=== PATIENT | female | born 1955 | race Caucasian/White ===

== ENCOUNTER 2016-12-08 12:28 | Inpatient (IN) ==
[2016-12-03 14:52] LABS: Appearance,Urine CLEAR; Bacteria,Urine 0 /hpf (0); Bilirubin,Urine NEG (NEG); Color,Urine YELLOW; Glucose,Urine (UA) NEGATIVE (NEG); Leukocyte Esterase,Urine 75 /uL (NEG); Mucus,Urine FEW /hpf (0); Nitrate,Urine NEG (NEG); Protein,Urine NEG (NEG); Specific Gravity,Urine 1.016 (1.000-1.035); Urine Blood NEG mg/dL (<0.03); Urine Hyaline Cast 3 /lpf (0-2); Urine RBC 1 /hpf (0-1); Urine Squamous Epithelial Cell 0 /hpf (0-4); Urine Transitional Epi Cells 1 /hpf (0-2); Urine WBC 8 /hpf (0-4); Urobilinogen,Urine NEG (NEG)
[2016-12-03 15:33] LABS: Basophils # (Auto) 0 K/mcL (0.0-0.3); Basophils % (Auto) 0.1 % (0.0-2.0); Eosinophils # (Auto) 0.2 K/mcL (0.0-0.7); Eosinophils % (Auto) 1.7 % (0.0-7.0); Granulocytes % (Auto) 66.7 % (38.0-78.0); Lymphocytes # (Auto) 2.7 K/mcL (1.5-4.8); Lymphocytes % (Auto) 26.1 % (15.5-49.0); Mean Cell Volume 95.4 fL (80.0-100.0); Mean Corpuscular HGB Conc 32.4 g/dL (31.0-36.0); Mean Corpuscular Hemoglobin 30.9 pg (26.0-34.0); Monocytes # (Auto) 0.6 K/mcL (0.1-0.9); Monocytes % (Auto) 5.4 % (1.0-9.0); Platelet Count 278 K/mcL (140-440); RBC 4.33 M/mcL (4.00-5.20); Red Cell Distribution Width 14.7 % (11.5-14.5)
[2016-12-03 15:58] LABS: Blood Urea Nitrogen 21 mg/dl (6-20)
[~2016-12-08 12:28] MED LIST: CELECOXIB 200 MG CAPSULE PO SCH; KETOROLAC 30 MG, ROPIVACAINE HCL/PF 49.5 ML, EPINEPHrine 0.5 MG, 0.9 % SODIUM CHLORIDE ... IJ SCH; PREGABALIN 150 MG CAPSULE PO SCH; ceFAZolin 1 GM VIAL IV SCH; oxyCODONE 10 MG TAB.ER.12H PO SCH
[2016-12-08 13:50] LABS: Appearance,Urine CLEAR; Bacteria,Urine 0 /hpf (0); Bilirubin,Urine NEG (NEG); Color,Urine YELLOW; Glucose,Urine (UA) NEGATIVE (NEG); Leukocyte Esterase,Urine NEG /uL (NEG); Mucus,Urine FEW /hpf (0); Nitrate,Urine NEG (NEG); Protein,Urine NEG (NEG); Specific Gravity,Urine 1.016 (1.000-1.035); Urine Blood NEG mg/dL (<0.03); Urine Hyaline Cast 1 /lpf (0-2); Urine RBC 1 /hpf (0-1); Urine Squamous Epithelial Cell 0 /hpf (0-4); Urine WBC < 1 /hpf (0-4); Urobilinogen,Urine NEG (NEG)
[2016-12-08] MEDS ORDERED: ROPIVACAINE HCL/PF 30 ML VIAL IJ ONE (15:30)
[2016-12-08] MEDS ORDERED: TRANEXAMIC ACID 1,000 MG/10 ML VIAL IV ONE (15:30)
[2016-12-08] MEDS ORDERED: PHENYLEPHRINE 10 MG/ML VIAL IV ONE (15:30)
[2016-12-08] MEDS ORDERED: GLYCOPYRROLATE 0.2 MG/ML VIAL IV ONE (15:30)
[2016-12-08] MEDS ORDERED: DEXAMETHASONE 10 MG/ML VIAL IV ONE (15:30)
[2016-12-08] MEDS ORDERED: ePHEDrine 50 MG/ML AMPUL IV ONE (15:30)
[2016-12-08] MEDS ORDERED: LIDOCAINE HCL/PF 100 MG/5 ML SYRINGE IV ONE (15:30)
[2016-12-08] MEDS ORDERED: ONDANSETRON 4 MG/2 ML VIAL IV ONE (15:30)
[2016-12-08] MEDS ORDERED: MIDAZOLAM 2 MG/2 ML VIAL IV ONE (15:30)
[2016-12-08] MEDS ORDERED: PROPOFOL 200 MG/20 ML VIAL IV ONE (15:30)
[2016-12-08] MEDS ORDERED: GENTAMICIN SULFATE 800 MG/20 ML VIAL IR ONE (16:02)
[2016-12-08] MEDS ORDERED: diphenhydrAMINE 50 MG/ML VIAL IV PRN (16:37)
[2016-12-08] MEDS ORDERED: MEPERIDINE 25 MG/ML SYRINGE IV PRN (16:37)
[2016-12-08] MEDS ORDERED: BENZOCAINE/MENTHOL 1 LOZENGE PO PRN (16:37)
[2016-12-08] MEDS ORDERED: FLUMAZENIL 0.1 MG/ML ML IV PRN (16:37)
[2016-12-08] MEDS ORDERED: METOCLOPRAMIDE 10 MG/2 ML VIAL IV PRN (16:37)
[2016-12-08] MEDS ORDERED: MEPERIDINE 50 MG/ML SYRINGE IM ONE (16:37)
[2016-12-08] MEDS ORDERED: PROMETHAZINE 25 MG/ML VIAL IM ONE (16:37)
[2016-12-08] MEDS ORDERED: NALOXONE HCL 0.4 MG/ML VIAL IV PRN (16:37)
[2016-12-08] MEDS ORDERED: PROMETHAZINE 25 MG/ML VIAL IV PRN ×2 (16:37→17:22)
[2016-12-08] MEDS ORDERED: ePHEDrine 50 MG/ML AMPUL IV PRN (16:37)
[2016-12-08] MEDS ORDERED: ONDANSETRON 4 MG/2 ML VIAL IV PRN ×2 (16:37→17:22)
[2016-12-08] MEDS ORDERED: HYDROmorphone 2 MG/ML SYRINGE IV PRN ×2 (16:37→18:30)
[2016-12-08] MEDS ORDERED: LACTATED RINGERS 250 ML IV PRN (16:37)
[2016-12-08] MEDS ORDERED: METHOCARBAMOL 1,000 MG/10 ML VIAL IV PRN (16:37)
[2016-12-08] MEDS ORDERED: IPRATROPIUM/ALBUTEROL 3 ML AMPUL.NEB NEB PRN (16:37)
[2016-12-08] MEDS ORDERED: fentaNYL 100 MCG/2 ML VIAL IV PRN (16:37)
[2016-12-08] MEDS ORDERED: LACTATED RINGERS 1,000 ML IV SCH (16:45)
[2016-12-08] MEDS ORDERED: MELOXICAM 7.5 MG TABLET PO PRN (17:21)
--- NOTE | 2016-12-08 17:21 | Brief Operative Note ---
Date of procedure: 12/08/16 Pre-op diagnosis: right knee oa Post-op diagnosis: same Procedure: right total knee arthroplasty Grafts/Implants: Yes Anesthesia: spinal Complications: none Surgeon: Leonardo Brandon Wood Scrap Handler: Charbel Morin Estimated blood loss (cc): 150 Tourniquet Time (Minutes): 58 Specimens Removed/Pathology: none sent Condition: stable Disposition: PACU
[2016-12-08] MEDS ORDERED: POLYETHYLENE GLYCOL 3350 17 GM PACKET PO PRN (17:22)
[2016-12-08] MEDS ORDERED: TRANEXAMIC ACID 1,000 MG/10 ML VIAL IV SCH (17:22)
[2016-12-08] MEDS ORDERED: BISACODYL 10 MG SUPP.RECT PR PRN (17:22)
[2016-12-08] MEDS ORDERED: ONDANSETRON ODT 4 MG TABLET SL PRN (17:22)
[2016-12-08] MEDS ORDERED: FLEETS ADULT ENEMA PR PRN (17:22)
[2016-12-08] MEDS ORDERED: MAGNESIUM HYDROXIDE 30 ML ORAL.SUSP PO PRN (17:22)
--- NOTE | 2016-12-08 18:22 | XRay Report ---
CLINICAL INFORMATION: Postop total knee prostheses COMPARISON: None. FINDINGS: Total knee prostheses is anatomically aligned. No osseous abnormality. Periarticular soft tissue swelling seen as expected IMPRESSION: Negative Interpreted and Authenticated by: Leonardo Vasquez 12/08/16
[2016-12-08] MEDS ORDERED: METHOCARBAMOL 750 MG TABLET PO PRN (18:30)
[2016-12-08] MEDS: 0.9 % SODIUM CHLORIDE 1,000 ML IV SCH (19:12)
[2016-12-08] MEDS: KETOROLAC 15 MG/ML VIAL IV SCH ×2 (19:12→23:56)
[2016-12-08] MEDS: PRAMIPEXOLE 0.25 MG TABLET PO SCH (21:38)
[2016-12-08] MEDS: DOCUSATE SODIUM 100 MG CAPSULE PO SCH (21:38)
[2016-12-08] MEDS: SENNOSIDES 1 TABLET PO SCH (21:38)
[2016-12-08] MEDS: ASPIRIN 325 MG ENTERIC COATED TABLET PO SCH (21:38)
[2016-12-08] MEDS: traZODone HCL 50 MG TABLET PO SCH (21:39)
[2016-12-08] MEDS: BENZOCAINE/MENTHOL 1 LOZENGE PO PRN (21:47)
[2016-12-08] MEDS: 0.9 % SODIUM CHLORIDE 10 ML SYRINGE IV SCH (22:13)
[2016-12-08] MEDS: ceFAZolin 1 GM VIAL IV SCH (23:56)
[2016-12-09] MEDS: BENZOCAINE/MENTHOL 1 LOZENGE PO PRN ×2 (00:48→12:15)
[2016-12-09] MEDS: 0.9 % SODIUM CHLORIDE 1,000 ML IV SCH ×4 (01:33→18:03)
[2016-12-09] MEDS: 0.9 % SODIUM CHLORIDE 10 ML SYRINGE IV SCH ×3 (05:08→20:08)
[2016-12-09] MEDS: KETOROLAC 15 MG/ML VIAL IV SCH ×4 (05:35→23:58)
--- NOTE | 2016-12-09 07:18 | Orthopedic Progress Note ---
Subjective Patient information: Note initiated : 12/09/16 at 7:17 am Service Date, if different from initiated Date: [] Patient: Elizabeth Vallejo a 61 y/o F admitted on 12/08/16 for Right Total Knee Arthroplasty. Chief Complaint: [] Principal diagnosis: right total knee arthroplasty Interval history: Doing great. No complaints. Mild thigh pain from tourniquet but knee is moving and doing well. Denies calf pain, chest pain, SOB. Objective Vital signs: Vital Signs Temp Pulse Resp BP Pulse Ox 12/09/16 06:25 98.1 F 20 93/52 94 12/09/16 05:40 16 95 12/09/16 04:28 87 102/64 97 12/09/16 04:23 74 100/64 90 12/09/16 04:00 97.2 F L 72 16 100/64 96 12/09/16 03:59 81 110/65 98 12/09/16 03:28 73 91/56 94 12/09/16 02:58 73 94/57 92 12/09/16 02:29 94 H 89/56 96 12/09/16 01:58 70 90/55 93 12/09/16 01:25 73 90/56 92 12/09/16 00:58 74 91/55 92 12/09/16 00:29 78 87/54 92 12/09/16 00:00 97.2 F L 92 H 16 113/57 12/08/16 23:58 78 93/53 92 12/08/16 23:25 80 92/59 90 12/08/16 23:10 76 91/57 94 12/08/16 22:55 80 94/58 93 12/08/16 22:40 77 90/56 95 12/08/16 22:25 80 85/51 95 12/08/16 22:10 77 87/55 94 12/08/16 21:55 81 89/56 92 12/08/16 21:43 85 88/51 100 12/08/16 20:37 85 82/50 91 12/08/16 20:07 95 H 90/54 95 12/08/16 19:58 94 12/08/16 19:37 93 H 96/60 88 L 12/08/16 18:54 101 H 101/58 99 12/08/16 18:39 97.2 F L 89 95/64 95 12/08/16 18:29 98.1 F 90 14 102/62 98 12/08/16 18:15 92 H 16 102/53 97 12/08/16 18:00 93 H 16 99/55 100 12/08/16 17:55 87 15 88/52 100 12/08/16 17:50 80 14 76/44 98 12/08/16 17:45 79 15 73/39 98 12/08/16 17:38 98.8 F 79 12 86/47 98 12/08/16 13:02 96.0 F L 77 18 110/73 98 Intake and Output 12/08/16 12/09/16 12/09/16 21:59 05:59 13:59 Intake Total 1999 3544 / 3544 Output Total 450 / 450 810 / 810 Balance 1550 / 1550 2734 / 2734 Intake: IV 994 / 994 Sodium Chloride 0.9% 1, 994 / 994 000 ml @ 125 mls/hr IV . Q8H YULY Rx#:[id number] Oral 2550 / 2550 IV - Manual Only 1999 Output: Void Amount 450 / 450 810 / 810 Other: Weight 179 lb 8 oz Intake & Output: Intake & Output 12/08/16 12/09/16 12/09/16 21:59 05:59 13:59 Intake Total 1999 3544 / 3544 Output Total 450 / 450 810 / 810 Balance 1550 / 1550 2734 / 2734 Weight 179 lb 8 oz Intake: IV 994 / 994 Sodium Chloride 0.9% 1, 994 / 994 000 ml @ 125 mls/hr IV . Q8H YULY Rx#:[id number] Oral 2550 / 2550 IV - Manual Only 1999 Output: Void Amount 450 / 450 810 / 810 Incision: Yes healing, Yes clean and dry Incision clean and dry: Yes Dressing: Yes clean, Yes dry, Yes intact Weight bearing status: as tolerated Neurological exam IM: Yes alert, No motor sensory deficit, Yes oriented X3, Yes motor sensory intact, Yes neurovascular intact Extremities exam IM: No calf tenderness, Yes normal capillary refill, No Jo' s sign, Yes neurovascular intact - Periperhal Pulses Peripheral pulses: 2+: dorsalis pedis (L), dorsalis pedis (R), posterior tibialis (L), posterior tibialis (R) - Labs CBC & BMP: 12/09/16 05:20 12/03/16 13:24 Labs: Orthopedic Labs 12/03/16 13:24 PT 13.0 INR 1.0 12/09/16 12/03/16 05:20 13:24 Hgb 9.4 L 13.4 Hct 28.8 L 41.3 Assessment and Plan (1) Knee joint replacement status Status: Acute Qualifiers: Laterality: right Qualified Code(s): Z96.651 - Presence of right artificial knee joint
--- NOTE | 2016-12-09 07:23 | Operative Note ---
DATE OF OPERATION: 12/08/2016 PREOPERATIVE DIAGNOSIS: Degenerative joint disease, right knee. POSTOPERATIVE DIAGNOSIS: Degenerative joint disease, right knee. PROCEDURE: Right total knee arthroplasty. SURGEON: Whitney Brandon M.D. [employer]LE INSPECTOR SURGEON: Charbel Morin PA-C ANESTHESIA: Spinal with LMA assist. ESTIMATED BLOOD LOSS: 150 mL COMPLICATIONS: None noted. SPECIMENS REMOVED: None. DRAINS: None. TOURNIQUET TIME: 58 minutes at 300 mmHg IMPLANTS: CMW2 bone cement 20 grams x4, Depuy Attune patella medialized dome 38 mm cemented AOX, Depuy Attune tibial insert fixed bearing posterior stabilized size 7, 7 mm AOX, Depuy Attune femoral posterior stabilized size 7 right cemented, Depuy Attune tibial base fixed bearing size 6 cemented. INDICATIONS: The patient has had a long-standing history of worsening pain in the knee that has failed conservative treatment. Radiographs have confirmed advanced degenerative joint disease. After a long discussion about treatment options, the patient elected to proceed with a knee arthroplasty. The risks and benefits were discussed with the patient in detail including, but not limited to, the risks of anesthesia, problems with the heart or lungs related to anesthesia, infection, compromise or injury to the nerves and blood vessels, deep venous thrombosis, pulmonary embolism, pneumonia, continued pain after surgery, worsening pain or symptoms after surgery, swelling, loss of motion, instability, leg length discrepancy, and need for repeat surgery. DESCRIPTION OF PROCEDURE: The patient was seen in the pre-anesthesia waiting room where all questions were answered and the correct side and site were identified and marked. The patient was transferred to the operating room and administered the anesthetic and given pre-operative antibiotics. A time-out was then called. The extremity was prepped and draped, exsanguinated, and the tourniquet was inflated to 300 mmHg. A midline skin incision was then made with a standard medial parapatellar arthrotomy. Debridement of the menisci, ACL, and PCL was performed followed by balancing releases in the medial lateral plane. We then established intramedullary access to both the femur and tibia in a standard fashion. The femoral guide caitlin was initially placed with the distal femoral guide, pinned into place, and the distal femoral cut was performed and checked with a flat plate. We then turned our attention to the tibia. The intramedullary guide was placed with the proximal tibial cutting block. The block was appropriately positioned off the affected side, varus and valgus was checked with the extra-medullary guide, and the block was pinned into place. The proximal tibial cut was performed and the tibia was prepared for the tibial implant with appropriate rotation. The tibia, femur, and posterior compartment were debrided of osteophytes, loose bodies, and meniscal fragments We then used the gap balancing technique to balance extension with the first two cuts and good balancing was obtained with a 10 millimeter gap block. We turned our attention back to the femur and used the referencing block and implant to size appropriately. Using the gap balancing technique for the flexion space we set our rotation of the femur off the tibial cut. Anesthesia gave the patient 1 gram of Tranexamic Acid via an intravenous route. We placed the 4 in 1 cutting block and made anterior, posterior, and chamfer cuts. Box plasty cuts were then made in a standard fashion for the posterior stabilized prosthesis. We then completed osteophyte release and posterior capsule release from the posterior compartment. Trials were placed and we chose the polyethylene insert thickness that provided the best stability in all planes. With the trials in place, we did a measured resection for a resurfacing patella. We sized the patella and placed the patella trial and performed a lateral facetectomy with the saw and rongeur. Good tracking was obtained. We removed all trials, irrigated and dried all cut surfaces. We cemented the components into place including tibia, femur and patella. We placed a trial liner and held the knee in full extension with the patella compressed while the cement cured. We then removed all excess cement and placed the final polyethylene tibiofemoral component. Irrigation with 3 liters of antibiotic saline was then performed using jet-lavage. We let the tourniquet down and coagulated bleeding vessels. We injected a 100 cubic centimeter volume including Ropivacaine 49.25 cubic centimeters at 5 milligrams per cubic centimeter, Ketorolac 30 milligrams, and Epinephrine 0.5 milligrams into 100 cubic centimeters volume of normal saline. We placed a deep drain and closed the retinaculum with looped #0 Maxon. We closed the subcutaneous tissue and skin in layers out to ken[place] in the skin. A sterile pressure dressing was applied. All needle and sponge counts were correct. The patient was transferred to the recovery room in stable condition. [email or web address] Job ID: [id number] Doc ID: [id number] Whitney Brandon MD
[2016-12-09] MEDS: FERROUS SULFATE 325 MG TABLET PO SCH (07:53)
[2016-12-09] MEDS: HYDROcodone/APAP 10/325MG TABLET PO PRN ×4 (07:54→20:06)
[2016-12-09] MEDS: LEVOTHYROXINE 125 MCG TABLET PO SCH (07:54)
[2016-12-09] MEDS: ceFAZolin 1 GM VIAL IV SCH (07:55)
[2016-12-09] MEDS: ATORVASTATIN 40 MG TABLET PO SCH (08:06)
[2016-12-09] MEDS: DOCUSATE SODIUM 100 MG CAPSULE PO SCH ×2 (08:06→20:06)
[2016-12-09] MEDS: ASPIRIN 325 MG ENTERIC COATED TABLET PO SCH ×2 (08:07→20:08)
[2016-12-09] MEDS: DULoxetine 30 MG CAPSULE PO SCH (08:07)
[2016-12-09] MEDS: PRAMIPEXOLE 0.25 MG TABLET PO SCH (20:05)
[2016-12-09] MEDS: SENNOSIDES 1 TABLET PO SCH (20:06)
[2016-12-09] MEDS: traZODone HCL 50 MG TABLET PO SCH (20:06)
[2016-12-10] MEDS: 0.9 % SODIUM CHLORIDE 1,000 ML IV SCH (03:11)
[2016-12-10] MEDS: HYDROcodone/APAP 10/325MG TABLET PO PRN ×4 (04:10→09:54)
[2016-12-10] MEDS: KETOROLAC 15 MG/ML VIAL IV SCH (06:45)
--- NOTE | 2016-12-10 06:45 | Orthopedic Progress Note ---
Subjective Patient information: Note initiated : 12/10/16 at 6:44 am Service Date, if different from initiated Date: [] Patient: Elizabeth Vallejo a 61 y/o F admitted on 12/08/16 for Right Total Knee Arthroplasty. Chief Complaint: [] Principal diagnosis: right total knee arthroplasty Interval history: doing well no complaints Objective Vital signs: Vital Signs Temp Pulse Resp BP BP Pulse Ox 12/10/16 04:00 97.7 F 90 18 101/62 96 12/10/16 00:00 98.1 F 80 18 106/57 95 12/09/16 20:00 98.1 F 93 H 18 96/60 95 12/09/16 19:21 18 95 12/09/16 16:16 98.8 F 16 88/50 95 12/09/16 11:21 98.9 F 18 94/49 94 12/09/16 07:57 93 Intake and Output 12/09/16 12/10/16 12/10/16 21:59 05:59 13:59 Intake Total 1460 / 1460 750 / 750 Output Total 1600 / 1600 Balance 1460 / 1460 -850 / -850 Intake: Oral 1460 / 1460 750 / 750 Output: Void Amount 1600 / 1600 Other: Meal Dinner Percent of Meal Consumed 100% Feeding Ability Independent Weight 179 lb Intake & Output: Intake & Output 12/09/16 12/10/16 12/10/16 21:59 05:59 13:59 Intake Total 1460 / 1460 750 / 750 Output Total 1600 / 1600 Balance 1460 / 1460 -850 / -850 Weight 179 lb Intake: Oral 1460 / 1460 750 / 750 Output: Void Amount 1600 / 1600 Other: Meal Dinner Percent of Meal Consumed 100% Feeding Ability Independent Incision: Yes healing, Yes clean and dry Incision clean and dry: Yes Dressing: Yes clean, Yes dry, Yes intact Weight bearing status: full Neurological exam IM: Yes alert, Yes normal gait, Yes oriented X3, Yes motor sensory intact, Yes neurovascular intact Extremities exam IM: Yes Foot pink and warm, Yes neurovascular intact - Labs CBC & BMP: 12/10/16 04:50 12/03/16 13:24 Labs: Orthopedic Labs 12/03/16 13:24 PT 13.0 INR 1.0 12/10/16 12/09/16 12/03/16 04:50 05:20 13:24 Hgb 7.4 L 9.4 L 13.4 Hct 22.9 L 28.8 L 41.3 Assessment and Plan (1) Knee joint replacement status pod 2 s/p tka wbat pain control dvt prophylaxis home today Status: Acute Qualifiers: Laterality: right Qualified Code(s): Z96.651 - Presence of right artificial knee joint
[2016-12-10] MEDS: 0.9 % SODIUM CHLORIDE 10 ML SYRINGE IV SCH (06:46)
--- NOTE | 2016-12-10 06:46 | Discharge Summary ---
Ortho Discharge - TKA - Patient Instructions Diet: Regular Diet Activity: activity as tolerated, weight bearing as tolerated Total Knee Protocol: For Total Knee: Start ROM OSCAR with stationary bike or rocking chair. Work on gaining full extension of knee. Posterior dislocation precautions provided. Hip abductor strengthening and gait training instructions provided. Apply Cryocuff as instructed. Dressing Care: May shower in 2 days - Problem Maintenance (1) Knee joint replacement status Status: Acute Qualifiers: Laterality: right Qualified Code(s): Z96.651 - Presence of right artificial knee joint - Follow Up Plan Disposition: Home, Self-Care Prognosis: Good Rehab Potential: Good I certify that the patient requires SNF services: No Overall status at discharge: patient is progressing back to baseline
[2016-12-10] MEDS: LEVOTHYROXINE 125 MCG TABLET PO SCH (07:02)
[2016-12-10] MEDS: ASPIRIN 325 MG ENTERIC COATED TABLET PO SCH (08:32)
[2016-12-10] MEDS: DULoxetine 30 MG CAPSULE PO SCH (08:32)
[2016-12-10] MEDS: ATORVASTATIN 40 MG TABLET PO SCH (08:32)
[2016-12-10] MEDS: DOCUSATE SODIUM 100 MG CAPSULE PO SCH (08:32)
[2016-12-10] MEDS: FERROUS SULFATE 325 MG TABLET PO SCH (08:34)
== END 2016-12-10 10:00 | disposition home or self-care (01) | DRG 470 ==
LOC: MEDSUR 12:28
PROVIDERS: ADMIT Orthopaedic Surgery Sports Medicine; ATTEND Orthopaedic Surgery Sports Medicine